=== PATIENT | female | born 1955 | race Caucasian/White ===

== ENCOUNTER 2018-04-07 06:07 | Day surgery (SDC) | payer OTHER ==
[2018-04-07] MEDS ORDERED: Ketamine HCl 50 MG/ML IJ ONE (06:08)
[2018-04-07] MEDS ORDERED: DIPRIVAN 200 MG/20 ML IV ONE (06:08)
[2018-04-07] MEDS ORDERED: Lactated Ringers 1,000 ML IV SCH (06:30)
[2018-04-07 08:01] VITALS: O2SAT 100
[2018-04-07 08:06] VITALS: BP 140/88; PULSE 66
--- NOTE | 2018-04-07 12:56 | OP ---
SURGERY DATE/TIME: 04/07/2018 0700 PREOPERATIVE DIAGNOSIS: History of peptic ulcer. POSTOPERATIVE DIAGNOSIS: Hiatal hernia otherwise normal exam. PROCEDURE: Esophagogastroduodenoscopy. SURGEON: Dr. Reese. ANESTHESIA: Medications were given by the anesthesia department. BRIEF HISTORY: The patient is a 62 year old white female who had recent significant bleed requiring transfusion of blood and transfer to [facility] [email or web address] The patient eventually stopped bleeding without any other intervention but they felt it was necessary for re-evaluation. It is now two months after that time. The patient was reappraised of the risks of the procedure including the risk of perforation, phlebitis, untoward reaction to medication, bleeding and missed lesions. The patient verbalized her understanding and desired to have the procedure performed. DESCRIPTION OF PROCEDURE: The patient was given the medications by the anesthesia department. She had continuous pulse oximetry, ECG monitoring, intermittent blood pressure monitoring and tidal CO2 monitoring during the examination. She was placed in the left lateral decubitus position. A bite block was placed and the flexible Olympus gastroscope was used to intubate the oropharynx. The scope was easily introduced in the esophagus which appeared to be normal throughout its length except for the presence of a hiatal hernia. The scope was then introduced into the stomach where normal gastric rugal folds were seen and these distended nicely with insufflation of air. The scope was passed along the greater curvature of the stomach to the antrum. The pylorus was inspected and found to be essentially normal. The scope was then advanced in the duodenum which appeared to be normal. The scope is withdrawn towards the stomach. Again, retroflex view obtained of lesser curvature, fundus and cardia regions of the stomach and these appeared to be normal other than the presence of a hiatal hernia. The scope was removed from the patient who tolerated the procedure well and sent back to the outpatient recovery in good condition.
== END 2018-04-07 08:10 | disposition home or self-care (01) ==
LOC: SDC 06:07
PROVIDERS: ATTEND Family Medicine
DX: Z87.11 Personal history of peptic ulcer disease (principal); K44.9 Diaphragmatic hernia without obstruction or gangrene; I10 Essential (primary) hypertension
CPT/HCPCS: 94250; J2704